=== PATIENT | female | born 1985 | race Two or more races ===

== ENCOUNTER 2017-03-10 09:17 | Emergency (ER) | payer OTHER ==
[2017-03-10 09:29] VITALS: BP 140/80; PULSE 82; TEMP 98.5; BMI 37.1
--- NOTE | 2017-03-10 10:35 | PDOC ---
History of Present Illness - General Chief Complaint: Sore Throat Stated Complaint: FEVER, THROAT PAIN Time Seen by Provider: 03/10/17 10:03 History Source: Patient Exam Limitations: No Limitations - History of Present Illness Initial Comments: 03/10/17 10:33 My chief complaint: Sore throat with fever 3 days History of present illness: Patient is a 31-year-old female with a history of hypertension here today complaining of sore throat with fever 3 days. Patient is breast-feeding currently. Patient last took Advil at 7 AM. Patient denies any nasal congestion, cough, nausea, diarrhea or headache. 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 Timing/Duration: getting worse (3 days) Severity: moderate Associated Symptoms: reports: fever/chills, other (sore throat) Past History - Past Medical History Allergies/Adverse Reactions: Allergies Allergy/AdvReac Type Severity Reaction Status Date / Time No Known Allergies Allergy Verified 03/10/17 09:25 Home Medications: Ambulatory Orders Amoxicillin - [Amoxicillin 500mg Capsule -] 500 mg PO BID #20 capsule 03/10/17 COPD: No HTN: Yes - Immunization History Immunization Up to Date: Yes - Suicide/Smoking/Psychosocial Hx Smoking History: Never smoked Have you smoked in the past 12 months: No Information on smoking cessation initiated: No Hx Alcohol Use: No Drug/Substance Use Hx: No Substance Use Type: None Review of Systems - Review of Systems Able to Perform ROS?: Yes Constitutional: No: Symptoms Reported HEENTM: Yes: Throat Pain. No: Nose Congestion Respiratory: No: Symptoms reported Cardiac (ROS): No: Symptoms Reported ABD/GI: No: Symptoms Reported : No: Symptoms Reported Musculoskeletal: No: Symptoms Reported Integumentary: No: Symptoms Reported Neurological: No: Symptoms reported *Physical Exam - Vital Signs Last Vital Signs Temp Pulse Resp BP Pulse Ox 98.5 F 82 14 140/80 97 03/10/17 09:26 03/10/17 09:26 03/10/17 09:26 03/10/17 09:26 03/10/17 09:26 - Physical Exam General Appearance: Yes: Appropriately Dressed HEENT: positive: TMs Normal, Pharyngeal Erythema, Tonsillar Erythema. negative : Tonsillar Exudate Neck: positive: Lymphadenopathy (R), Lymphadenopathy (L) Respiratory/Chest: positive: Lungs Clear, Normal Breath Sounds. negative: Chest Tender, Respiratory Distress Cardiovascular: positive: Regular Rhythm, Regular Rate, S1, S2 Integumentary: positive: Normal Color Neurologic: positive: Alert, Normal Response, Responsive. negative: Respond to painful stimul, Numbness, Sensory Deficit Medical Decision Making - Medical Decision Making 03/10/17 10:34 Patient is a 31-year-old female with a history of hypertension here today complaining of sore throat with fever 3 days. Patient is breast-feeding currently. Patient last took Advil at 7 AM. Patient denies any nasal congestion , cough, nausea, diarrhea or headache. 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 tonsillitis R/O strep PLAN: throat C & S rapid + for beta hemolytic strep amoxicillin 500 mg bid for 10 days 03/10/17 12:26 *DC/Admit/Observation/Transfer Diagnosis at time of Disposition: Streptococcal tonsillitis - Referrals - Patient Instructions Additional Instructions: Drink a lot of fluids and rest Acetaminophen as needed as directed by river expedition guide for fever Throw out her toothbrush at end of treatment get new one Follow-up with your primary care provider within the next few days Return to emergency room if any difficulty breathing or swallowing Patient voiced understanding of discharge instructions and all questions were answered thank you for choosing [facility] emergency room for your medical needs today - Post Discharge Activity
== END 2017-03-10 12:45 | disposition home or self-care (01) ==
LOC: JERFT 09:17
DX: J03.00 Acute streptococcal tonsillitis, unspecified (principal); B95.0 Streptococcus, group A, as the cause of diseases classified elsewhere; I10 Essential (primary) hypertension
CPT/HCPCS: 87070; 87430; 99281-25

== ENCOUNTER 2019-01-11 11:24 | Emergency (ER) | payer OTHER ==
[2019-01-11 11:39] VITALS: TEMP 98.6; BMI 41.9
--- NOTE | 2019-01-11 13:07 | PDOC ---
History of Present Illness - General Chief Complaint: Blood Pressure Problem Stated Complaint: HTN Time Seen by Provider: 01/11/19 12:28 History Source: Patient - History of Present Illness Timing/Duration: other (this am) Past History - Past Medical History Allergies/Adverse Reactions: Allergies Allergy/AdvReac Type Severity Reaction Status Date / Time No Known Allergies Allergy Verified 01/11/19 11:40 Home Medications: Ambulatory Orders NK [No Known Home Medication] 01/11/19 COPD: No HTN: Yes - Immunization History Immunization Up to Date: Yes - Suicide/Smoking/Psychosocial Hx Smoking History: Never smoked Have you smoked in the past 12 months: No Information on smoking cessation initiated: No Hx Alcohol Use: No Drug/Substance Use Hx: No Substance Use Type: None Review of Systems - Review of Systems Constitutional: No: Chills, Fever Respiratory: No: Shortness of Breath Cardiac (ROS): No: Chest Pain ABD/GI: No: Diarrhea, Nausea, Vomiting, Abdominal cramping : No: Burning, Dysuria, Flank Pain Neurological: No: Headache, Weakness, Dizziness *Physical Exam - Vital Signs Last Vital Signs Temp Pulse Resp BP Pulse Ox 98.6 F 73 19 148/99 100 01/11/19 11:34 01/11/19 12:39 01/11/19 12:39 01/11/19 12:39 01/11/19 11:34 - Physical Exam General Appearance: Yes: Appropriately Dressed. No: Apparent Distress HEENT: positive: Normal Voice Neck: positive: Supple Respiratory/Chest: positive: Lungs Clear, Normal Breath Sounds. negative: Respiratory Distress Cardiovascular: positive: Regular Rate, S1, S2 Gastrointestinal/Abdominal: positive: Soft. negative: Tender Integumentary: positive: Dry, Warm Neurologic: positive: Fully Oriented, Alert, Normal Mood/Affect ED Treatment Course - LABORATORY CBC & Chemistry Diagram: 01/11/19 12:54 01/11/19 12:54 Medical Decision Making - Medical Decision Making 01/11/19 13:04 33 yo F, (s/p 1 spon AB), s/p 20 days ago at [facility] (f/u at [facility] w/ Dr Castillo Veliz), now sent in by [facility]NS for elevated BP this am. Pt does not remember numbers, but states "it was high". States her BP was elevated during her was was tx w/ asa which she is no longer on. Had vague WINN 2-3 days ago that has since resolved. No dizziness, visual changes, photophobia, n/v, abd pain or acute pedal edema. No vag bleed, dysuria , f/c see exam Elevated BP in female Asymptomatic currently Well deena w/ BP of 125/70 at triage, 148/99 on rpt Case d/w Dr Tuttle who rec basic labs and discuss dispo w/ on-call OB Dispo pending 01/11/19 14:33 Labs/ua unremarkable. Rpt BP 144/91. Pt remains asymptomatic. As discussed w/ Dr Tuttle, will discuss dispo w/ on-call OB 01/11/19 14:45 Case d/w Dr Richter of OB who was made aware of BP readings and lab results. Per MD, would not administer blood pressure medications at this time, would have pt f/u with her OB in am. This was discussed with pt who was informed of concern for pre-eclampsia and what it entails. Informed of the importance of returning to ED for worsening of sxs, otherwise to see her OB in am *DC/Admit/Observation/Transfer Diagnosis at time of Disposition: Elevated blood pressure reading - Discharge Dispostion Disposition: HOME Condition at time of disposition: Stable - Referrals - Patient Instructions Printed Discharge Instructions: DI for High Blood Pressure Additional Instructions: Tu presin arterial fue igualada hoy. La ms gracie fue 144/99. Elizabeth anlisis de anai y orina fueron normales. Llamamos al OBGYN aqu en [facility], quien recomend que maana thom un seguimiento con elizabeth OB en [facility]. Regrese al servicio de urgencias para empeorar el dolor de brianne, las nuseas, los vmitos , los cambios visuales o el dolor abdominal. Print Language: GEORGIAN - Post Discharge Activity
[2019-01-11 13:20] LABS: BASO % 0.9 % (0-2.0); EOS % 2.4 % (0-4.5); HEMATOCRIT 38.7 % (32.4-45.2); HEMOGLOBIN 12.8 GM/dL (10.7-15.3); LYMPH % 38.9 % (8-40); MCH 29.2 pg (25.7-33.7); MCHC 33.1 g/dl (32.0-36.0); MEAN CELL VOLUME 88.3 fl (80-96); MONO % 5.7 % (3.8-10.2); NEUT % 52.1 % (42.8-82.8); PLATELET COUNT 429 K/MM3 (134-434); RBC 4.38 M/mm3 (3.60-5.2); RDW 14.5 % (11.6-15.6); WHITE BLOOD COUNT 8.1 K/mm3 (4.0-10.0)
[2019-01-11 13:49] LABS: EPI CELLS 1.7 /HPF (0-5/HPF); HYALINE CASTS 4 /lpf (0-8); PH,URINE 5.5 (5.0-8.0); URINE APPEARANCE CLEAR; URINE BACTERIA 2.7 /hpf (NEGATIVE); URINE BILIRUBIN NEGATIVE (NEGATIVE); URINE COLOR YELLOW; URINE GLUCOSE (UA) NEGATIVE (NEGATIVE); URINE KETONE NEGATIVE (NEGATIVE); URINE LEUK ESTERASE 1+ (NEGATIVE); URINE NITRITE NEGATIVE (NEGATIVE); URINE PROTEIN NEGATIVE (NEGATIVE); URINE RBC 1 /hpf (0-4); URINE UROBILINOGEN 0.2 mg/dL (0.2-1.0); URINE WBC 5 /hpf (0-5)
[2019-01-11 13:54] LABS: ALBUMIN 3.7 g/dl (3.4-5.0); BILIRUBIN,TOTAL 0.4 mg/dL (0.2-1); BLOOD UREA NITROGEN 12.4 mg/dL (7-18); CALCIUM 9.3 mg/dL (8.5-10.1); CREATININE 0.7 mg/dL (0.55-1.3); POTASSIUM 4.1 mmol/L (3.5-5.1); TOT PROT 7.8 g/dl (6.4-8.2)
[2019-01-11 14:11] VITALS: BP 144/91; PULSE 72
--- NOTE | 2019-01-11 18:22 | PN ---
Progress Note (short form) - Note Progress Note: OB consult response I was contacted by Lidya Herrera & informed briefly about the patient who was 20 days , had at [facility] , pt was not discharged on any BP meds . she was fine , asymptomatic , no headache , she came to ER because VNS noted high BP . I could not get history if she had preclempsia, pt informed her that she was on baby asprine for preclempsia prophylaxis since bp told to me were 148/99, & 141/91 , urine protein neg, all labs neg , I recommended no BP meds , she should follow with her Provider at [facility] Official consult is placed after pt is discharged from ED I did not personally evaluated the patient
== END 2019-01-11 14:45 | disposition home or self-care (01) ==
LOC: JERFT 11:24
DX: O90.89 Other complications of the puerperium, not elsewhere classified (principal); R03.0 Elevated blood-pressure reading, without diagnosis of hypertension
CPT/HCPCS: 36415; 80053; 81003; 85025; 99282-25

== ENCOUNTER 2020-09-09 09:29 | Emergency (ER) | payer BC, OTHER ==
[2020-09-09 09:38] VITALS: BP 130/72; PULSE 96; TEMP 97; BMI 39.2
[2020-09-09] MEDS ORDERED: IBUPROFEN 400 MG TABLET (FP) PO ONE ×2 (10:44→11:01)
== END 2020-09-09 11:11 | disposition home or self-care (01) ==
LOC: JER 09:29 → JERFT 09:29
DX: S93.401A Sprain of unspecified ligament of right ankle, initial encounter (principal)
CPT/HCPCS: 73610-TC-RT-FY; 73630-TC-RT-FY; 99284-25